=== PATIENT | male | born 1990 | race Two or more races ===

== ENCOUNTER 2019-05-30 17:27 | Emergency (ER) | payer OTHER ==
[~2019-05-30] VITALS: Ht 177.8 cm; Wt 103.0 kg
== END 2019-05-30 21:26 | disposition home or self-care (01) ==
LOC: ER 17:27
DX: K64.4 Residual hemorrhoidal skin tags (principal); K60.0 Acute anal fissure

== ENCOUNTER 2024-05-14 18:26 | Emergency (ER) | payer OTHER ==
[~2024-05-14] VITALS: Ht 177.8 cm; Wt 113.4 kg
[2024-05-14] MEDS ORDERED: TAMSULOSIN HCL 0.4 MG CAP PO ONE (19:45)
[2024-05-14] MEDS ORDERED: CEFTRIAXONE SODIUM 1,000 MG VIAL IV ONE (19:45)
[2024-05-14] MEDS ORDERED: 0.9 % SODIUM CHLORIDE 500 ML IV ONE (19:45)
[2024-05-14] MEDS ORDERED: FAMOtidine 10 MG/ML (4ML VIAL) IV PUSH ONE (19:45)
[2024-05-14 21:33] LABS: HEMATOCRIT 42.4 % (39.0-48.0); HEMOGLOBIN 14.8 g/dL (13-16.00); MEAN CELL VOLUME 87.1 fL (80.0-100.00); MEAN CORPUSCULAR HEMOGLOBIN 30.4 pg (27.00-32.0); MEAN CORPUSCULAR HGB CONC 34.9 g/dl (32.0-36.0); PLATELET COUNT 167 K/uL (150-450); RED BLOOD COUNT 4.87 M/uL (4.00-6.00); RED CELL DISTRIBUTION WIDTH 13.1 % (11.5-14.5)
[2024-05-14 21:40] LABS: ALBUMIN 3.5 gm/dL (3.4-5.0); BILIRUBIN TOTAL 1.03 mg/dL (0.3-1.2); CALCIUM 8.9 mg/dL (8.5-10.1); CREATININE SERUM 1.26 mg/dL (0.70-1.30); GFR 66.75; GLOBULINA 3.8 G/DL (2.4-3.5); POTASSIUM 3.75 mEq/L (3.5-5.1); TOTAL PROTEIN 7.3 gm/dL (6.4-8.2)
[2024-05-14 21:51] LABS: URINE APPEARANCE Turbid; URINE BILIRRUBIN Negative (NEGATIVE); URINE BLOOD Large; URINE COLOR Yellow; URINE GLUCOSE Negative (NEGATIVE); URINE KETONE Trace (NEGATIVE); URINE LEUKOCYTE Large; URINE NITRATE Positive
[2024-05-14 21:54] LABS: URINE CAST 2.64 uL (0.0-1.40); URINE EPITHELIAL CELLS 7.5 uL (0.0-38.8); URINE RBC 197.8 uL (0.0-20.8); URINE WBC 5305.7 uL (0.0-23.2)
[2024-05-14 22:15] LABS: URINE BACTERIA > 9821.5 uL (0.0-1933); URINE PROTEIN 100 (NEGATIVE)
== END 2024-05-15 04:24 | disposition home or self-care (01) ==
LOC: ER 18:28
PROVIDERS: General Practice
DX: N39.0 Urinary tract infection, site not specified (principal); J00 Acute nasopharyngitis [common cold]; Z20.822 Contact with and (suspected) exposure to COVID-19

== ENCOUNTER 2024-06-13 16:06 | Inpatient (IN) | payer OTHER ==
[~2024-06-13] VITALS: Ht 180.3 cm; Wt 108.9 kg
--- NOTE | 2024-06-13 16:12 | NUR ---
PACIENTE ALERTA Y ORIENADO X 3. REFIERE DOLOR ABDOMINAL, DIARREAS X 5, NO VOMITOS. REFIERE 6 ONEIL CON SINTOMAS Y FUE ATENDIDO EN OFICINA MEDICA Y REFERIDO A ER CON RESULTADO CE CT SCAN.
--- NOTE | 2024-06-13 16:53 | NUR ---
PTE ALERTA Y ORIENTADO X3, REINIER WATTERS ORIENTA SOBRE TX MEDICO Y EL MISMO REFIERE ACEPTAR. CANALIZA Y COLECTA MUESTRAS DE LAB BAJO MEDIDAS ASEPTICAS. HACE ENTREGA DE ENVASE PARA U/A. PEND XRAY
[2024-06-13 17:25] LABS: HEMATOCRIT 45.6 % (39.0-48.0); HEMOGLOBIN 16.1 g/dL (13-16.00); MEAN CELL VOLUME 86.4 fL (80.0-100.00); MEAN CORPUSCULAR HEMOGLOBIN 30.4 pg (27.00-32.0); MEAN CORPUSCULAR HGB CONC 35.2 g/dl (32.0-36.0); PLATELET COUNT 186 K/uL (150-450); RED BLOOD COUNT 5.28 M/uL (4.00-6.00); RED CELL DISTRIBUTION WIDTH 12.9 % (11.5-14.5)
[2024-06-13 17:39] LABS: INR 1.1; PARTIAL THROMBOPLASTIN TIME 29.1 SECONDS (22.0-34.0); PROTHROMBIN TIME 11.9 SECONDS (9.0-11.5)
[2024-06-13 17:40] LABS: URINE APPEARANCE Clear; URINE BILIRRUBIN Negative (NEGATIVE); URINE BLOOD Negative; URINE COLOR Dark Yellow; URINE GLUCOSE Negative (NEGATIVE); URINE LEUKOCYTE Negative; URINE NITRATE Negative; URINE PROTEIN 30 (NEGATIVE)
[2024-06-13 17:44] LABS: URINE BACTERIA 7.3 uL (0.0-1933); URINE EPITHELIAL CELLS 12.8 uL (0.0-38.8); URINE RBC 6.1 uL (0.0-20.8); URINE WBC 7.9 uL (0.0-23.2)
[2024-06-13 17:46] LABS: ALBUMIN 3.8 gm/dL (3.4-5.0); BILIRUBIN TOTAL 0.96 mg/dL (0.3-1.2); CREATININE SERUM 0.9 mg/dL (0.70-1.30); GFR 98.42; GLOBULINA 3.1 G/DL (2.4-3.5); POTASSIUM 3.98 mEq/L (3.5-5.1); TOTAL PROTEIN 6.9 gm/dL (6.4-8.2)
[2024-06-13 17:58] LABS: URINE CAST 0.14 uL (0.0-1.40); URINE KETONE 40 (NEGATIVE)
[2024-06-13] MEDS ORDERED: PIPERACILLIN/TAZOBACTAM SODIUM 3.375 GM in DEXTROSE 5 % IN WATER 100 ML IV SCH (19:41)
[2024-06-13] MEDS ORDERED: 0.9 % SODIUM CHLORIDE 1,000 ML IV SCH (19:45)
[2024-06-13] MEDS ORDERED: ONDANSETRON HCL 4 MG in 0.9 % SODIUM CHLORIDE 50 ML IV PRN (19:45)
[2024-06-13] MEDS ORDERED: ACETAMINOPHEN 500 MG GEL..CAP PO PRN (19:45)
[2024-06-13] MEDS ORDERED: KETOROLAC TROMETHAMINE 30 MG VIAL IU ONE (19:45)
[2024-06-13] MEDS ORDERED: MORPHINE SULFATE 4 MG/ML CARTRIDGE IV PRN (19:45)
[2024-06-14 03:00] VITALS: BP 113/69; O2SAT 97
[2024-06-14 03:21] VITALS: BP 139/72; O2SAT 98
[2024-06-14 08:00] VITALS: BP 123/78; O2SAT 97
[2024-06-14] MEDS ORDERED: FAMOTIDINE/PF 20 MG in 0.9 % SODIUM CHLORIDE 8 ML IV PUSH SCH (09:00)
[2024-06-14] MEDS ORDERED: ENOXAPARIN SODIUM 40 MG/0.4 ML SYRINGE SUBCUTANEO SCH (09:00)
[2024-06-14 16:16] VITALS: BP 116/72; O2SAT 95
[2024-06-15 00:07] VITALS: BP 142/65; O2SAT 98
[2024-06-15 04:38] LABS: HEMATOCRIT 42.3 % (39.0-48.0); HEMOGLOBIN 14.9 g/dL (13-16.00); MEAN CELL VOLUME 86.1 fL (80.0-100.00); MEAN CORPUSCULAR HEMOGLOBIN 30.3 pg (27.00-32.0); MEAN CORPUSCULAR HGB CONC 35.2 g/dl (32.0-36.0); PLATELET COUNT 190 K/uL (150-450); RED BLOOD COUNT 4.91 M/uL (4.00-6.00); RED CELL DISTRIBUTION WIDTH 12.5 % (11.5-14.5)
[2024-06-15 09:47] VITALS: BP 123/80; O2SAT 98
[2024-06-15] MEDS ORDERED: VANCOMYCIN HCL 125 MG/7.5 ML BLIST.PACK PO SCH (13:00)
== END 2024-06-15 16:13 | disposition home or self-care (01) | DRG 395 ==
LOC: ER 16:08 → SURG 20:18
PROVIDERS: General Practice; ADMIT Student in an Organized Health Care Education/Training Program; ATTEND Student in an Organized Health Care Education/Training Program
DX: K35.80 Unspecified acute appendicitis (principal); K52.9 Noninfective gastroenteritis and colitis, unspecified